=== PATIENT | female | born 1995 ===

== ENCOUNTER 2017-01-10 17:50 | Emergency (ER) | payer OTHER ==
[2017-01-10] MEDS ORDERED: Ondansetron ODT TAB* 4 MG PO ONE (19:45)
[2017-01-10] MEDS ORDERED: Sulfamethox/Trimethoprim DS 800/160* TAB PO ONE (19:46)
--- NOTE | 2017-01-10 20:14 | RAD ---
INDICATION: Concern for subcutaneous fluid collection COMPARISON: None TECHNIQUE: Real time ultrasound images of the subcutaneous tissue at the left medial elbow were acquired with marie scale and Doppler color flow imaging. FINDINGS: At the area of concern at the medial left elbow there is a heterogeneous minimally vascular collection measuring 1.6 x 2.6 x 0.9 cm. There is what appears to be a small amount of drainable fluid along the lateral margin of this collection. IMPRESSION: Mostly echogenic subcutaneous collection as described above.
--- NOTE | 2017-01-10 20:20 | ED ---
Skin Complaint - HPI Summary HPI Summary: 21 female presents to ED with complaints of possible infection of left elbow incision. Had ulnar nerve release/cubital tunnel syndrome surgically fixed about 1 month ago. Incision became infected ~10 days ago and she has been taking Keflex for 7 days. States she feels it is not working as it is still swollen, tender and warm. Admits to small amount of yellow discharge from site earlier today. Denies significant redness. States she also feels nauseous. Denies any vomiting, other pain, rash, read streaks, palpitations and fever. No other complaints and no PMHx. No other medications. Surgeon is down in [facility]. No definitive history of MRSA however has had several skin infections in her lifetime. Possible MRSA carrier. - History of Current Complaint Chief Complaint: EDExtremityUpper Time Seen by Provider: 01/10/17 18:26 Stated Complaint: SX incision RED/HOT - 1MONTH Hx Obtained From: Patient Onset/Duration: Started Weeks Ago - 1, Still Present, Worse Since Skin Exposure Onset/Duration: Weeks Ago - 1 Timing: Constant Onset Severity: Mild - with palpation Current Severity: None Pain Intensity: 0 Pain Scale Used: 0-10 Numeric Skin Location: Arm - left elbow Character: Swelling, Raised, Painful Aggravating Symptom(s): Touch Alleviating Symptom(s): Nothing Associated Signs & Symptoms: Nausea PMH/Surg Hx/FS Hx/Imm Hx Endocrine/Hematology History: Denies: Hx Diabetes Cardiovascular History: Denies: Hx Hypertension Respiratory History: Denies: Hx Asthma Musculoskeletal History: Reports: Other Musculoskeletal History - cubital tunnel syndrome - Surgical History Surgery Procedure, Year, and Place: cubital tunnel repair left UE 11/2016 Infectious Disease History: No Infectious Disease History: Reports: Hx of Known/Suspected MRSA - although not definitive Denies: Traveled Outside the in Last 30 Days - Family History Known Family History: Positive: None - Social History Alcohol Use: None Substance Use Type: Reports: None Smoking Status (MU): Never Smoked Tobacco Review of Systems Constitutional: Negative Cardiovascular: Negative Respiratory: Negative Positive: Nausea Musculoskeletal: Negative Positive: Rash - possible incision infection All Other Systems Reviewed And Are Negative: Yes Physical Exam Triage Information Reviewed: Yes Vital Signs On Initial Exam: Initial Vitals Temp Pulse Resp BP Pulse Ox 98.6 F 77 16 132/75 100 01/10/17 18:00 01/10/17 18:00 01/10/17 18:00 01/10/17 18:00 01/10/17 18:00 Vital Signs Reviewed: Yes Appearance: Positive: Well-Appearing, No Pain Distress, Well-Nourished Skin: Positive: Warm, Skin Color Reflects Adequate Perfusion, Dry, Other - mildly tender to touch left medial elbow incision approximately 10cm in length, without significant erythema. mildly warm to touch and mildly edematous, firm/ indurated area ~ 2cm, no fluctuance. no red streaking or signs of surrounding cellulitis. no active drainage appreciated. well approximated incision without signs of dehiscence. Negative: Cold, Numb, Cyanosis @, Pale Head/Face: Positive: Normal Head/Face Inspection Eyes: Positive: Conjunctiva Clear ENT: Positive: Hearing grossly normal Neck: Positive: Supple, Nontender Respiratory/Lung Sounds: Positive: Clear to Auscultation, Breath Sounds Present. Negative: Rales, Rhonchi, Wheezes Cardiovascular: Positive: Normal, RRR, Pulses are Symmetrical in both Upper and Lower Extremities. Negative: Murmur, Rub Abdomen Description: Positive: Nontender Musculoskeletal: Positive: Normal, Strength/ROM Intact - normal ROM with passive extension/flexion of all digits of UE only tender along area of incision not rest of extremitiy. only firm ~2cm of incision, not elsewhere, Edema Left - at medial left elbow, over incision~2cm area firm, indurated, no fluctuance or drainage. mildly tender, Other - no concern for tenosynovitis or compartment syndrome.. Negative: Limited @, Interruption @, Pain @ Neurological: Positive: Normal, Sensory/Motor Intact, Alert, Oriented to Person Place, Time, CN Intact II-III, Reflexes Intact, NV Bundle Intact Distally, Normal Gait Diagnostics - Vital Signs Vital Signs Temp Pulse Resp BP Pulse Ox 01/10/17 18:00 98.6 F 77 16 132/75 100 - Laboratory Result Diagrams: 01/10/17 21:19 01/10/17 21:19 Lab Statement: Any lab studies that have been ordered have been reviewed, and results considered in the medical decision making process. - Ultrasound No standard instances Ultrasound Interpretation: Positive (See Comments) - At the area of concern at the medial left elbow there is a heterogeneous minimally vascular collection measuring 1.6 x 2.6 x 0.9 cm. There is what appears to be a small amount of drainable fluid along the lateral margin of this collection. IMPRESSION: Mostly echogenic subcutaneous collection as described above. Ultrasound Interpretation Completed By: Radiologist Course/Dx - Course Course Of Treatment: given zofran as patient stated she felt nauseous. had relief. soft tissue ultrasound obtained, no significant abscess present requiring immediate drainage at this time. some fluid was noted. will add bactrim to antibiotic regimen to cover possible MRSA. patient has had many skin infections in the past however no definite diagnosis of MRSA. warm, tender and edematous. basic labs and CRP obtained and unremarkable. normal vitals. no concern for sepsis, tenosynovitis compartment syndrome or osteomyleitis at this time. no fluid available to culture while in ED. encouraged hygeine and strict antibiotic regimen. refrain from picking and touching. follow up with surgeon when at home, tomorrow. aware of worsening signs and symptoms. no further work up/treatment appeared necessary at this time. spoke with patient's father on telephone, who is also a physician. all questions answered. agree and understands. encouraged further work up to rule out other etiology with surgeon. continue keflex, add bactrim. - Differential Diagnoses - Skin Complaint Differential Diagnoses: Abscess, Cellulitis, MRSA, Other - dehiscence, post-op complications - Diagnoses Provider Diagnoses: Superficial incisional infection of surgical site Discharge - Discharge Plan Condition: Stable Disposition: HOME Patient Education Materials: Acute Wound Care (ED), Warm Compress or Soak (ED) , Acute Wounds (ED), Cellulitis (ED) Referrals: No Primary Care Phys,NOPCP [Primary Care Provider] - Additional Instructions: Follow up with surgeon when you get home for possible further imaging and work up. Continue taking Keflex and add Bactrim as directed. Keep wound clean and dry. Apply warm compresses. Increase fluid intake. Ibuprofen for discomfort. Any new or worsening signs/symptoms please seek medical attention.
[2017-01-10 21:27] LABS: Hematocrit 41 % (35-47); Hemoglobin 14.2 g/dl (12.0-16.0); Mean Corpuscular HGB Conc 35 g/dl (31-36); Mean Corpuscular Hemoglobin 31 pg (27-31); Mean Corpuscular Volume 87 fL (80-97); Mean Platelet Volume 9 um3 (7.4-10.4); Red Blood Count 4.64 10^6/ul (4.0-5.4); Red Cell Distribution Width 13 % (10.5-15); White Blood Count 7.4 10^3/ul (3.5-10.8)
[2017-01-10 21:42] LABS: ALT 10 U/L (7-52); AST 16 U/L (13-39); Albumin 4.8 g/dL (3.2-5.2); Alkaline Phosphatase 46 U/L (34-104); Anion Gap 6 mmol/L (2-11); Blood Urea Nitrogen 14 mg/dL (6-24); CO2 Carbon Dioxide 27 mmol/L (22-32); Calcium 9.6 mg/dL (8.6-10.3); Chloride 106 mmol/L (101-111); EGFR African American 138.6 (>60); EGFR Non-African American 107.8 (>60); Globulin 2.7 g/dL (2-4); Glucose 88 mg/dL (70-100); Potassium 3.5 mmol/L (3.5-5.0); Sodium 139 mmol/L (133-145); Total Protein 7.5 g/dL (6.4-8.9)
[2017-01-10 22:23] LABS: C Reactive Protein < 1.00 mg/L (< 5.00)
[2017-01-10 23:08] VITALS: BP 103/61
== END 2017-01-10 23:15 | disposition home or self-care (01) ==
LOC: ED 17:50
DX: T81.4XXA Infection following a procedure, initial encounter (principal); B99.9 Unspecified infectious disease; R21 Rash and other nonspecific skin eruption; M25.522 Pain in left elbow
CPT/HCPCS: 36415; 80053; 83605; 85025; 86140; 99282; A9270-GY